=== PATIENT | male | born 2000 | race Caucasian/White ===

== ENCOUNTER 2020-06-16 16:12 | Emergency (ER) | payer OTHER, SELFPAY ==
[2020-06-16 16:30] VITALS: BP 145/91; PULSE 96; RESP 14; TEMP 37; O2SAT 100; BMI 26.6
[2020-06-16 16:44] LABS: Apearance,Urine Clear (Clear); Color,Urine Yellow (Yellow); Glucose,Urine (UA) Negative (Negative); Ketones,Urine Negative (Negative); PH,Urine 5.5 (5.0-8.5); Protein,Urine Negative (Negative); Specific Gravity, Urine >= 1.030 (1.005-1.030)
[2020-06-16 16:45] LABS: Bilirubin,Urine Negative (Negative); Blood, Urine Negative (Negative); UTC Leukocyte Esterase,Urine Negative (Negative); UTC Nitrate,Urine Negative (Negative); Urobilinogen,Urine 0.2 EU/dl (0.2)
--- NOTE | 2020-06-16 16:45 | HMH.EDUTC ---
[facility] [place] Disposition Clinical Impression: Low back pain Qualifiers: Chronicity: acute Back pain laterality: bilateral Sciatica presence: without sciatica Qualified Code(s): M54.5 - Low back pain Disposition: Home, Self-Care Condition on Discharge: Good Instructions: DI for Low Back Pain Additional Instructions: Go home and rest. It would be best if you rested tomorrow too. No heavy lifting. No twisting. Take the oral medications as directed. The muscle relaxer (flexeril) will make you drowsy, so don't drive or operate heavy machinery after taking it. Follow up with your regular doctor. GO TO THE ER FOR ANY WORSENING SYMPTOMS OR CONCERN, ESPECIALLY BOWEL OR BLADDER ISSUES, SADDLE AREA NUMBNESS, FEVER, ETC Prescriptions: Ibuprofen [Ibuprofen 600mg Tablet] 600 mg PO Q6HP PRN #30 tab PRN Reason: Mild Pain Transmission Status: Received by [id number] Cyclobenzaprine HCl [Flexeril 10mg tablet] 10 mg PO BIDP PRN #30 tab PRN Reason: Muscle Spasm Transmission Status: Received by [id number] Referrals: Kevin Miller MD [Primary Care Provider] - Forms: Work/School Release Time of Disposition: 17:40 Medical Decision Making - Medical Records Medical records reviewed: No: I reviewed the patient's medical records. - Donato Inquiry Pt receiving controlled substance: No Vital Signs: 06/16/20 16:30 06/16/20 17:42 Temperature 98.6 F 98.6 F Temperature Source Oral Pulse Rate 96 H Pulse Rate [Right Brachial] 96 H Respiratory Rate 14 14 Blood Pressure 145/91 H Blood Pressure [Right Arm] 145/91 H Blood Pressure Mean [Right Arm] 109 Blood Pressure Source [Right Arm] Automatic Cuff Blood Pressure Position [Right Arm] Sitting 02 Sat by Pulse Oximetry 100 Oxygen Delivery Method Room Air - Lab Data Lab Results 06/16/20 16:42: Urine Color Yellow, Urine Appearance Clear, Urine pH 5.5, Ur Specific [place] >= 1.030, Urine Protein Negative, Urine Glucose (UA) Negative, Urine Ketones Negative, Urine Blood Negative, Urine Nitrate Negative, Urine Bilirubin Negative, Urine Urobilinogen 0.2, Ur Leukocyte Esterase Negative - Radiology Data #1 Image(s): L-Spine Image Reviewed: Yes I reviewed the patient's radiology image, Yes I have reviewed radiologist's interpretation Preliminary Findings: No Fracture Seen PROCEDURE: XR LUMBAR SPINE 2-3V CLINICAL INDICATION: LOW BACK PAIN COMPARISON: No exams were available for comparison FINDINGS: There is mild lumbar scoliosis convex left. There is slight reversal of the lumbar lordosis. No fracture or dislocation. No lytic or blastic change. No lytic or blastic change IMPRESSION: Mild scoliosis with slight reversal of lumbar lordosis Dictated by: Jared Johnson MD 06/16/2020 17:17 Jared Johnson MD in [place] 06/16/2020 17:17 [facility] [place] HPI - General Stated complaint: possible kidney infection Time Seen by Provider: 06/16/20 16:45 - History of Present Illness Provider Complaint: He c/o low back pain for the past 1 week. He denies any injury. He denies any dysuria or hematuria. He rates the pain as a 4/10 at this time. He denies having a history of similar episodes of pain. The pain doesn't radiate - Related Data Previous Rx's Medication Instructions Recorded Cyclobenzaprine HCl [Flexeril 10mg 10 mg PO BIDP PRN #30 tab 06/16/20 tablet] Ibuprofen [Ibuprofen 600mg 600 mg PO Q6HP PRN #30 tab 06/16/20 Tablet] Allergies Allergy/AdvReac Type Severity Reaction Status Date / Time No Known Allergies Allergy Verified 06/16/20 17:02 [facility] History - Hepatitis A Screen Attestation statement:: This patient has been screened for Hepatitis A risk factors. I have reviewed the patient's past medical history: Yes ROS Obtained: Yes All systems reviewed & no additional complaints - Constitutional Constitutional: Reports system reviewed and no additional complaints, except as docu - Eyes Eyes
--- NOTE | 2020-06-16 16:50 | XR_ITS ---
PROCEDURE: XR LUMBAR SPINE 2-3V CLINICAL INDICATION: LOW BACK PAIN COMPARISON: No exams were available for comparison FINDINGS: There is mild lumbar scoliosis convex left. There is slight reversal of the lumbar lordosis. No fracture or dislocation. No lytic or blastic change. No lytic or blastic change IMPRESSION: Mild scoliosis with slight reversal of lumbar lordosis Dictated by: Jared Johnson MD 06/16/2020 17:17 Jared Johnson MD in [place] 06/16/2020 17:17
[2020-06-16 17:42] VITALS: BP 145/91; PULSE 96; RESP 14; TEMP 37; O2SAT 100
== END 2020-06-16 17:48 | disposition home or self-care (01) ==
PROVIDERS: Emergency Provider Nurse Practitioner Family; PCP Family Medicine
DX: M54.5 Low back pain (principal)
CPT/HCPCS: 72100; 81003; 99202